=== PATIENT | female | born 1985 | race African-American/Black ===

== ENCOUNTER 2021-10-17 22:43 | Emergency (ER) | payer MEDICAID ==
[~2021-10-17] VITALS: Ht 167.6 cm; Wt 90.7 kg
--- NOTE | 2021-10-17 23:08 | NUR ---
pt present to er for cough with sob, states symptoms are worse now. pt is a/o x4 with steady gait able to ambulate without assist. denies c/p or n/v. Dr. Mendoza at bedside for MSE.
[2021-10-17] MEDS ORDERED: ALBUTEROL SULFATE 2.5 MG/3 ML NEBU NEB ONE (23:15)
[2021-10-17] MEDS ORDERED: IPRATROPIUM BROMIDE 0.5 MG/2.5 ML NEBU NEB ONE (23:15)
--- NOTE | 2021-10-17 23:19 | NUR ---
covid swab sent. RT at bedside for breathing tx.
--- NOTE | 2021-10-17 23:25 | NUR ---
xray at bedside.
[2021-10-17] MEDS ORDERED: ALBUTEROL SULFATE 2.5 MG/3 ML NEBU ONE (23:28)
[2021-10-17] MEDS ORDERED: IPRATROPIUM BROMIDE 0.5 MG/2.5 ML NEBU ONE (23:28)
--- NOTE | 2021-10-18 00:27 | NUR ---
Patient discharged to home in stable condition. Written and verbal after care instructions given. Patient verbalizes understanding of instructions. Stressed follow up or return to ER for worsening s/s. pt with steady gait, amb without assistance. denies c/p or sob.
[2021-10-18 00:29] VITALS: BP 140/80
== END 2021-10-18 00:30 | disposition home or self-care (01) ==
LOC: ER 22:46
DX: J45.909 Unspecified asthma, uncomplicated (principal); R05.9 Cough, unspecified; Z20.822 Contact with and (suspected) exposure to COVID-19; R03.0 Elevated blood-pressure reading, without diagnosis of hypertension
CPT/HCPCS: 71045; A4663; J3590

== ENCOUNTER 2021-11-27 12:28 | Emergency (ER) | payer MEDICAID ==
[~2021-11-27] VITALS: Ht 167.6 cm; Wt 102.1 kg
[2021-11-27] MEDS ORDERED: ALBUTEROL INH (12:45)
[2021-11-27] MEDS ORDERED: PROMETHAZINE (12:45)
--- NOTE | 2021-11-27 14:08 | NUR ---
PT WAS EVALUATED BY DR DOYLE. PT WAS D/C'd TO HOME. D/C INSTRUCTIONS GIVEN TO THE PT BY DR DOYLE.
[2021-11-27 14:09] VITALS: BP 136/78
== END 2021-11-27 14:26 | disposition home or self-care (01) ==
LOC: ER 12:28
DX: U07.1 COVID-19 (principal); J45.909 Unspecified asthma, uncomplicated; Z79.899 Other long term (current) drug therapy
CPT/HCPCS: A4663